=== PATIENT | female | born 1975 ===

== ENCOUNTER 2020-02-29 20:47 | Emergency (ER) | payer SELFPAY ==
[~2020-02-29] VITALS: Ht 160 cm; Wt 74.8 kg
[2020-02-29] MEDS ORDERED: Naprosyn500 MG PO (22:19)
== END 2020-02-29 22:53 | disposition home or self-care (01) ==
LOC: ER 20:47 → EDBD 20:47 → ER 22:53
DX: S52.615A Nondisplaced fracture of left ulna styloid process, initial encounter for closed fracture (principal); S52.502A Unspecified fracture of the lower end of left radius, initial encounter for closed fracture; Z88.0 Allergy status to penicillin; Z88.5 Allergy status to narcotic agent; W19.XXXA Unspecified fall, initial encounter
CPT/HCPCS: 71045; 73100; 73610; 96374-59; 96375-59; 99284-25; A9270; J1170; J1885; J2405